=== PATIENT | male | born 1950 | race Caucasian/White ===

== ENCOUNTER → 2021-03-14 | Outpatient (CLI) | payer OTHER | LOC: LAB SHORT 11:12 → PLD 11:12 | DX: D48.5 Neoplasm of uncertain behavior of skin (principal); D22.5 Melanocytic nevi of trunk | CPT/HCPCS: 88305 ==

== ENCOUNTER 2021-07-31 08:04 | Day surgery (SDC) | payer OTHER ==
[~2021-07-31] VITALS: Ht 175.3 cm; Wt 74.1 kg
[~2021-07-31 08:04] MED LIST: CYAN500 PO; METHI10 PO; TAMS.4ER PO; VITAMIN D325 MC3 PO
--- NOTE | 2021-07-31 08:52 | NUR ---
07/31/21 0852 Krys Hdz FIRST IV IN RIGHT HAND BLEW SECOND IV IN RIGHT HAND BLEW THIRD IV IN LEFT HAND WORKED BY RN
== END 2021-07-31 09:54 | disposition home or self-care (01) ==
LOC: ORSCSDS 08:04
PROVIDERS: Surgery
PROC: 0DJD8ZZ Inspection of Lower Intestinal Tract, Via Natural or Artificial Opening Endoscopic (ICD-10-PCS; principal; 2021-07-31 09:15)
DX: Z12.11 Encounter for screening for malignant neoplasm of colon (principal); I10 Essential (primary) hypertension; K21.9 Gastro-esophageal reflux disease without esophagitis; Z79.899 Other long term (current) drug therapy
CPT/HCPCS: J2704; J7120

== ENCOUNTER → 2023-04-07 | Outpatient (CLI) | payer OTHER | END | disposition home or self-care (01) | LOC: LAB SHORT 11:59 → PLD 11:59 → LAB 11:59 | DX: D22.4 Melanocytic nevi of scalp and neck (principal) | CPT/HCPCS: 88305 ==

== ENCOUNTER 2024-05-25 07:30 | Day surgery (SDC) | payer OTHER ==
[~2024-05-25] VITALS: Ht 172.7 cm; Wt 75.2 kg
[~2024-05-25 07:30] MED LIST changes: +Erythromycin 0.5% Opth Oint 1 gm ONE; +Lidocaine 2%-Epineph 1:100000 20 ML MDV ONE; +NS 500 ML IV ONE; +Tetracaine HCl 1% 10MG/ML 2ML Amp ONE
[2024-05-25] MEDS ORDERED: Lactated Ringer's 1,000 ML IV ONE (07:54)
--- NOTE | 2024-05-25 07:55 | NUR ---
05/25/24 075Duncan Cross CALL LIGHT WITHIN REACH.
[2024-05-25] MEDS ORDERED: Midazolam HCl 1MG / ML 2ML Vial ONE (08:54)
[2024-05-25] MEDS ORDERED: FentaNYL Citrate 50 MCG/ML 2 ML Injection ONE (08:54)
[2024-05-25] MEDS ORDERED: propofoL 20 ML IV ONE (08:55)
[2024-05-25] MEDS ORDERED: Bupivacaine 0.75% Inj 30 ML Vial INJ ONE (09:09)
[2024-05-25] MEDS ORDERED: NS 500 ML IV ONE (09:12)
[2024-05-25 12:24] VITALS: BP 130/72
== END 2024-05-25 10:00 | disposition home or self-care (01) ==
LOC: ORSCSDS 07:30
PROVIDERS: Ophthalmology
PROC: 080NXZZ Alteration of Right Upper Eyelid, External Approach (ICD-10-PCS; principal; 2024-05-25 08:45)
PROC: 080PXZZ Alteration of Left Upper Eyelid, External Approach (ICD-10-PCS; principal; 2024-05-25 08:45)
DX: H02.831 Dermatochalasis of right upper eyelid (principal); H02.834 Dermatochalasis of left upper eyelid; N40.0 Benign prostatic hyperplasia without lower urinary tract symptoms; Z79.899 Other long term (current) drug therapy
CPT/HCPCS: A9270; J2250; J2704; J3010; J7040; J7120